=== PATIENT | male | born 1940 | race Native Hawaiian/Other Pacific Islander ===

== ENCOUNTER 2020-11-21 12:44 | Outpatient (CLI) | payer OTHER, MEDICARE | END 2020-11-21 19:38 | disposition home or self-care (01) | LOC: RESP 12:44 | PROVIDERS: ATTEND Nurse Practitioner Family | DX: I10 Essential (primary) hypertension (principal); I25.10 Atherosclerotic heart disease of native coronary artery without angina pectoris ==